=== PATIENT | male | born 1940 | race Caucasian/White ===

== ENCOUNTER 2018-07-19 11:41 | Emergency (ER) | payer MEDICARE, OTHER ==
--- NOTE | 2018-07-19 12:45 | EDM.PDOC ---
ED HPI GENERAL MEDICAL PROBLEM - General Chief Complaint: Lower Extremity Injury/Pain Stated Complaint: [facility] Time Seen by Provider: 07/19/18 11:48 Source of Information: Reports: Patient, Family, RN Notes Reviewed History Limitations: Reports: No Limitations - History of Present Illness INITIAL COMMENTS - FREE TEXT/NARRATIVE: Patient is a 77 year old male who is brought into the ED via [facility] for the evaluation of weakness and not being able to get out of his recliner this AM. The patient recently had a Right total knee replacement by Dr. Hernandez in [facility] in [place] roughly 2 weeks ago. The patient states that his knee buckled last night around 9pm and fell into the couch and then on to the floor. Emergency services were called to help him up and they put him into recliner and he stayed there all night. When he tried to get out of recliner, he was unable to get up and call the ambulance again for help. The states that she cannot help him up because he is like " weight" and it is difficult to do by herself. The patient is on oxycodone and tramadol Q6 PRN, and tizanidine q4 PRN for muscle spasms. He last got a dose of oxycodone last night around 6pm and the states that she started giving him his muscle relaxer last night starting around 5pm as scheduled. The states that PT/OT and home health nurse come to the house twice a week for therapy and they have also noticed a decline in his progression. The patient notes that this last sunday he thought he heard a popping sound and had a follow up appointment with his surgeon and had a knee x-ray and everything was fine, but states that he feels the weakness has increased since then. He also notes that he feels scared that he does not want to hurt his knee. There is mild swelling noted, but no obvious deformity. He denies any recent illness, or feelings of being unwell at all. Right Knee Pain Score (Numeric/FACES): 5 - Related Data Allergies Allergy/AdvReac Type Severity Reaction Status Date / Time No Known Allergies Allergy Verified 07/19/18 11:47 Home Meds: Home Meds Acetaminophen [Tylenol] 1,000 mg PO Q6H PRN 07/19/18 [History] Aspirin 81 mg PO BID 07/19/18 [History] Famotidine 10 mg PO BID 07/19/18 [History] Fish Oil/[place]-3 Fatty Acids [Fish Oil 1,000 MG] 1 tab PO DAILY 07/19/18 [ History] Lisinopril/Hydrochlorothiazide [Lisinopril-Hctz 20-25 mg Tab] 1 tab PO DAILY [History] Meloxicam 15 mg PO DAILY 07/19/18 [History] Multivitamin [Multivitamins] 1 tab PO DAILY 07/19/18 [History] Polyethylene Glycol 3350 [MiraLAX] 17 gm PO DAILY 07/19/18 [History] Sennosides/Docusate Sodium [Senna-S] 1 tab PO BID 07/19/18 [History] amLODIPine [Norvasc] 5 mg PO DAILY 07/19/18 [History] oxyCODONE 5 mg PO Q6HR PRN 07/19/18 [History] tiZANidine [Zanaflex] 4 mg PO Q6H PRN 07/19/18 [History] traMADol [Ultram] 50 mg PO Q6H PRN 07/19/18 [History] Past Medical History Cardiovascular History: Reports: Hypertension Musculoskeletal History: Reports: Other (See Below) Other Musculoskeletal History: 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 Neurological History: Reports: Other (See Below) Other Neuro History: dementia Psychiatric History: Reports: Depression - Past Surgical History GI Surgical History: Reports: Appendectomy Musculoskeletal Surgical History: Reports: Knee Replacement Social & Family History - Family History Family Medical History: Noncontributory - Tobacco Use Smoking Status *Q: Never Smoker Second Hand Smoke Exposure: No - Caffeine Use Caffeine Use: Reports: None - Recreational Drug Use Recreational Drug Use: No Review of Systems - Review of Systems Review Of Systems: See Below Constitutional: Denies: Chills, Fever Eyes: Reports: No Symptoms Ears: Denies: Dizziness Nose: Reports: No Symptoms Mouth/Throat: Reports: No Symptoms Respiratory: Denies: Shortness of Breath, Wheezing Cardiovascular: Denies: Chest Pain, Edema GI/Abdominal: Denies: Constipation, Diarrhea, Nausea, Vomiting Genitourinary: Reports: No Symptoms Musculoskeletal: Reports: Joint Swelling (mild localized swelling to right knee) , Other (muscle spasms bilateral legs) Skin: Reports: Wound (surgical wound, well healing to right knee). Denies: Pallor Neurological: Denies: Numbness, Tingling Psychiatric: Reports: No Symptoms ED EXAM, GENERAL - Physical Exam Exam: See Below Exam Limited By: No Limitations General Appearance: Alert, WD/WN, No Apparent Distress Eye Exam: Bilateral Eye: Normal Inspection Ears: Normal External Exam Nose: Normal Inspection Throat/Mouth: Normal Inspection Head: Atraumatic, Normocephalic Neck: Normal Inspection Respiratory/Chest: No Respiratory Distress, Lungs Clear, Normal Breath Sounds, No Accessory Muscle Use, Chest Non-Tender Cardiovascular: Normal Peripheral Pulses, Regular Rate, Rhythm, No Edema, No JVD , No Murmur GI/Abdominal: Normal Bowel Sounds, Soft, Non-Tender, No Distention, No Mass Extremities: Normal Inspection, Non-Tender, No Pedal Edema, Normal Capillary Refill, Joint Swelling (right knee), Limited Range of Motion (to right knee, d/ t replacement). No: Leg Pain, Increased Warmth, Pallor, Redness Neurological: Alert, Oriented, Normal Cognition, Normal Reflexes, No Motor/ Sensory Deficits Psychiatric: Normal Affect, Normal Mood Skin Exam: Warm, Dry, Intact, Normal Color, No Rash, Wound/Incision (surgical incision to right knee, well healing) ED TRAUMA EXTREMITY PROCEDURES - Splinting Right Lower Extremity Splint Site: right lower leg Pre-Procedure NV Status: Normal Post-Procedure NV Status: Normal Splint Material: Fiberglass Splint Design: Posterior (long leg) Applied & Form Fitted By: Provider Provider Post-Splint Application NV Check: NV Status Normal, Good Position Complications: No Course - Vital Signs Last Recorded V/S: Last Vital Signs Temp 99.1 F 07/19/18 17:30 Pulse 94 07/19/18 17:30 Resp 16 07/19/18 17:30 BP 118/79 07/19/18 17:30 Pulse Ox 96 07/19/18 17:30 Orthostatic Blood Pressure [] 157/87 Orthostatic Blood Pressure [] 128/79 - Orders/Labs/Meds Orders: Active Orders 24 hr Category Date Time Status Orthostatic Vital Signs [RC] ASDIRECTED Care 07/19/18 14:06 Ordered Peripheral IV Care [RC] . DIRECTED Care 07/19/18 17:24 Ordered Knee 3V Rt [CR] Stat Exams 07/19/18 17:19 Ordered Knee wo Cont Rt [CT] Stat Exams 07/19/18 15:58 Ordered Sodium Chloride 0.9% [Saline Flush] Med 07/19/18 17:24 Ordered 10 ml FLUSH ASDIRECTED PRN Peripheral IV Insertion Adult [OM.PC] Routine Oth 07/19/18 17:24 Ordered Medication Orders Sodium Chloride (Saline Flush) 10 ml FLUSH ASDIRECTED PRN PRN Reason: Keep Vein Open Last Admin: 07/19/18 17:51 Dose: 10 ml Labs: Laboratory Tests 07/19/18 07/19/18 Range/Units 12:45 12:45 WBC 5.00 (4.23-9.07) K/mm3 RBC 3.54 L (4.63-6.08) M/mm3 Hgb 9.3 L (13.7-17.5) gm/L Hct 30.2 L (40.1-51.0) % MCV 85.3 (79.0-92.2) fl MCH 26.3 (25.7-32.2) pg MCHC 30.8 L (32.2-35.5) g/dl RDW Std Deviation 52.2 H (35.1-43.9) fL Plt Count 459 H (163-337) K/mm3 MPV 7.6 L (9.4-12.3) fl Neutrophils % (Manual) 77 H (40-60) % Band Neutrophils % 0 (0-10) % Lymphocytes % (Manual) 15 L (20-40) % Atypical Lymphs % 0 % Monocytes % (Manual) 7 (2-10) % Eosinophils % (Manual) 0 L (0.8-7.0) % Basophils % (Manual) 1 (0.2-1.2) Platelet Estimate Adequate Plt Morphology Comment Normal Hypochromasia 1+ slight Anisocytosis 2+ moderate Microcytosis 1+ slight RBC Morph Comment Not Reportable Sodium 136 (136-145) mEq/L Potassium 3.5 (3.5-5.1) mEq/L Chloride 100 (98-107) mEq/L Carbon Dioxide 26 (21-32) mEq/L Anion Gap 13.5 (5-15) BUN 21 H (7-18) mg/dL Creatinine 0.8 (0.7-1.3) mg/dL Est Cr Clr Drug Dosing 82.92 mL/min Estimated GFR (MDRD) > 60 (>60) mL/min BUN/Creatinine Ratio 26.3 H (14-18) Glucose 144 H (83-115) mg/dL Calcium 9.0 (8.5-10.1) mg/dL Total Bilirubin 0.6 (0.2-1.0) mg/dL AST 28 (15-37) U/L ALT 24 (16-63) U/L Alkaline Phosphatase 76 (46-116) U/L Total Protein 6.9 (6.4-8.2) g/dl Albumin 2.9 L (3.4-5.0) g/dl Globulin 4.0 gm/dL Albumin/Globulin Ratio 0.7 L (1-2) Meds: Medications Generic Name Dose Route Start Last Admin Trade Name Freq PRN Reason Stop Dose Admin Sodium Chloride 10 ml 07/19/18 17:24 07/19/18 17:51 Saline Flush FLUSH 10 ml ASDIRECTED PRN Administration Keep Vein Open Discontinued Medications Generic Name Dose Route Start Last Admin Trade Name Freq PRN Reason Stop Dose Admin Hydromorphone HCl 1 mg 07/19/18 17:24 07/19/18 17:49 Dilaudid IVPUSH 07/19/18 17:25 1 mg ONETIME ONE Administration Orphenadrine Citrate 100 mg 07/19/18 14:30 07/19/18 14:40 Norflex PO 07/19/18 14:31 100 mg ONETIME ONE Administration Oxycodone HCl 5 mg 07/19/18 16:58 07/19/18 17:54 Oxycodone PO 07/19/18 16:59 Not Given ONETIME ONE - Radiology Interpretation Free Text/Narrative:: CT right knee Technique: Multiple axial sections through the right knee were obtained. Reconstructed coronal and sagittal images were obtained. Findings: Distal diaphyseal fracture is seen near the junction the mid and distal one third diaphysis. There is overlapping of the fracture fragments with displacement by over a shaft width. Proximal fragment is displaced posteriorly. Right knee prosthesis is seen. Fracture does not involve the prosthesis. No additional fracture is identified. Soft tissue swelling is seen. Impression: 1. Distal diaphyseal fracture at the junction of the mid and distal one third diaphysis. Overlapping of the fracture fragments are noted with displacement. 2. Prosthesis is noted within the right knee. Fracture does not involve the prosthesis. - Re-Assessments/Exams Free Text/Narrative Re-Assessment/Exam: 07/19/18 12:51 Pt presents to the ED for the evaluation of increased weakness with fall last noc s/p R knee replacement 2 weeks ago. There are no obvious deformities to R knee joint, just some mild swelling. I will try to get a hold of his surgical team to see if they have any further recommendations, but in the mean time I have ordered a CBC and CMP for evaluation of weakness to see if there may be an electrolyte abnormality or anemia possibility. It is my belief that he may need more frequent, smaller amounts of therapy to help with his recovery from knee replacement. 07/19/18 14:06 Pt labs are back and they are quite unremarkable, I was able to get a hold of Dr. Hernandez around 13:15 and he seems to think that he may need some extra therapy as well, inpatient vs outpatient is yet to be determined. Have ordered ortho vital signs and will try to walk him to see if he is able to get out of bed. 07/19/18 14:58 Pt was unable to get out of bed to walk for us. He will need hospital admission for rehab. The patient did request to be admitted to [facility] in [place] if possible. Will try to arrange transfer of this. He will likely need group home admission after his hospitalization. [facility] is consulted on the case and is trying to coordinate admission, under care of Dr. Bernstein (hospitalist ) with consult for Dr. Hernandez. 07/19/18 15:43 [facility] was consulted and Dr. Bernstein feels this may be a lateral transfer, since this is a rehab sort of situation. Dr. Titus our hospitalist was consulted and she declined admission because we do not have ortho coverage this weekend, in the off chance that something may happen the the joint that was repaired. I agree with Dr. Titus. The patient was made aware of this. [facility] (Dr. Bernstein) would accept but only for observation at this point. I strongly feel that the patient needs to be admitted to [facility], where his surgeon is so that they can more closely follow, as we cannot provide him proper ortho services if something should happen. 07/19/18 15:55 Dr. Bernstein would like a Right knee CT done prior to transfer. 07/19/18 17:10 CT is done and shows that he did in fact fracture his right femur. 5mg oxycodone has been ordered and splint will be placed before transfer to [facility] , [facility] will be called back and will be informed of the fracture, this will likely change him to inpatient status. Will consult them for what splint they feel is appropriate. 07/19/18 18:35 [facility] requested that the patient have a posterior long leg splint and patient be NPO after midnight. He will be inpatient status. Departure - Departure Time of Disposition: 18:30 Disposition: DC/Tfer to Acute Hospital 02 Condition: Fair Clinical Impression: Closed fracture of femur - Discharge Information *PRESCRIPTION DRUG MONITORING PROGRAM REVIEWED*: No *COPY OF PRESCRIPTION DRUG MONITORING REPORT IN PATIENT KADY: No Forms: ED Department Discharge - My Orders Last 24 Hours: My Active Orders 07/19/18 14:06 Orthostatic Vital Signs [RC] ASDIRECTED 07/19/18 15:58 Knee wo Cont Rt [CT] Stat 07/19/18 17:19 Knee 3V Rt [CR] Stat 07/19/18 17:24 Peripheral IV Care [RC] . DIRECTED Sodium Chloride 0.9% [Saline Flush] 10 ml FLUSH ASDIRECTED PRN Peripheral IV Insertion Adult [OM.PC] Routine - Assessment/Plan Last 24 Hours: My Active Orders 07/19/18 14:06 Orthostatic Vital Signs [RC] ASDIRECTED 07/19/18 15:58 Knee wo Cont Rt [CT] Stat 07/19/18 17:19 Knee 3V Rt [CR] Stat 07/19/18 17:24 Peripheral IV Care [RC] . DIRECTED Sodium Chloride 0.9% [Saline Flush] 10 ml FLUSH ASDIRECTED PRN Peripheral IV Insertion Adult [OM.PC] Routine
[2018-07-19] MEDS ORDERED: Orphenadrine 100 MG Tab.ER PO ONE (14:30)
[2018-07-19] MEDS ORDERED: oxyCODONE 5 MG Tab PO ONE (16:58)
[2018-07-19] MEDS ORDERED: HYDROmorphone 1 MG/ML Syringe IVPUSH ONE (17:24)
[2018-07-19] MEDS ORDERED: Sodium Chloride 0.9% 10 ML Syringe FLUSH PRN (17:24)
--- NOTE | 2018-07-20 15:30 | CR ---
Right knee: AP and lateral views of the right knee were obtained. Comparison: No previous study. Distal femur fracture is noted. Fracture shows foreshortening and displacement. Knee prosthesis is seen. Osteopenia is noted. Soft tissue swelling is seen. Impression: 1. Distal femur fracture as noted above. 2. Knee prosthesis. Diagnostic code #3
--- NOTE | 2018-07-22 06:35 | CT ---
CT right knee Technique: Multiple axial sections through the right knee were obtained. Reconstructed coronal and sagittal images were obtained. Findings: Distal diaphyseal fracture is seen near the junction of the mid and distal one third diaphysis. There is overlapping of the fracture fragments with displacement by over a shaft width. Proximal fragment is displaced posteriorly. Right knee prosthesis is seen. Fracture does not involve the prosthesis. No additional fracture is identified. Soft tissue swelling is seen. Impression: 1. Distal diaphyseal fracture at the junction of the mid and distal one third diaphysis. Overlapping of the fracture fragments is noted with displacement. 2. Prosthesis is noted within the right knee. Fracture does not involve the prosthesis. Diagnostic code #3 MTDD
== END 2018-07-19 19:25 ==
LOC: JD.ED 11:41
DX: S72.401A Unspecified fracture of lower end of right femur, initial encounter for closed fracture (principal); I10 Essential (primary) hypertension; Z79.82 Long term (current) use of aspirin; Z79.899 Other long term (current) drug therapy; W17.89XA Other fall from one level to another, initial encounter
CPT/HCPCS: 29505; 36415; 73562; 73700; 80053; 85007; 85027; 96374; 99285; A9270; J1170

== ENCOUNTER 2018-11-17 16:50 | Emergency (ER) | payer MEDICARE, OTHER ==
--- NOTE | 2018-11-17 17:47 | EDM.PDOC ---
ED HPI GENERAL MEDICAL PROBLEM - General Chief Complaint: Lower Extremity Injury/Pain Stated Complaint: R LEG PAIN Time Seen by Provider: 11/17/18 17:29 Source of Information: Reports: Patient, Family ( + daughter), RN Notes Reviewed History Limitations: Reports: No Limitations - History of Present Illness INITIAL COMMENTS - FREE TEXT/NARRATIVE: The patient underwent right total knee arthroplasty on 07/03/2018 at [facility]. His knee buckled and he fell at home on 07/18/2018. He was seen in this ED on 07/19/2018, after being unable to get out of his recliner that he spent the night in. He was found to have a distal right femur fracture. He was transferred to [facility], were he received a right femur toño on 2018. He was then sent to rehabilitation on 07/23/2018, where he stayed until about one week ago. The patient now presents to the ED stating that he twisted his right lower extremity yesterday, causing distal right thigh pain. He is unable to ambulate, because he feels like his lower extremity is weak and unable to support his weight. The patient's PCP is Dr. Ced Jimenez. His Orthopedic Surgeon is Dr. Wilber Hernandez. Right Upper Leg Pain Score (Numeric/FACES): 8 - Related Data Allergies Allergy/AdvReac Type Severity Reaction Status Date / Time No Known Allergies Allergy Verified 11/17/18 16:57 Home Meds: Home Meds Aspirin 81 mg PO BID 07/19/18 [History] Famotidine 20 mg PO BID 07/19/18 [History] Fish Oil/[place]-3 Fatty Acids [Fish Oil 1,000 MG] 1 tab PO DAILY 07/19/18 [ History] Lisinopril/Hydrochlorothiazide [Lisinopril-Hctz 20-25 mg Tab] 1 tab PO DAILY [History] Meloxicam 15 mg PO DAILY 07/19/18 [History] Multivitamin [Multivitamins] 1 tab PO DAILY 07/19/18 [History] amLODIPine [Norvasc] 5 mg PO DAILY 07/19/18 [History] tiZANidine [Zanaflex] 4 mg PO Q6H PRN 07/19/18 [History] Acetaminophen 650 mg PO Q6H PRN 11/17/18 [History] Melatonin 5 mg PO BEDTIME 11/17/18 [History] Sertraline [Zoloft] 50 mg PO DAILY 11/17/18 [History] Past Medical History Cardiovascular History: Reports: High Cholesterol, Hypertension Musculoskeletal History: Reports: Arthritis (knees), Fracture (right distal femur 07/18/2018) Neurological History: Reports: Other (See Below) (Dementia) Psychiatric History: Reports: Depression - Past Surgical History HEENT Surgical History: Reports: Cataract Surgery GI Surgical History: Reports: Appendectomy Musculoskeletal Surgical History: Reports: Knee Replacement (right, 07/03/2018), Other (See Below) (Right femur rodding 07/20/2018. Left bunionectomy. Left hammertoes.) Social & Family History - Family History Family Medical History: Noncontributory - Tobacco Use Smoking Status *Q: Never Smoker - Caffeine Use Caffeine Use: Reports: None - Alcohol Use Alcohol Use History: Yes Alcohol Use Frequency: Rarely - Recreational Drug Use Recreational Drug Use: No - Living Situation & Occupation Living situation: Reports: , with Spouse Occupation: Retired Review of Systems - Review of Systems Review Of Systems: ROS reveals no pertinent complaints other than HPI. ED EXAM, GENERAL - Physical Exam Exam: See Below Exam Limited By: No Limitations General Appearance: Alert, WD/WN, No Apparent Distress Extremities: Other (There appears to be foreshortening and thickening of the right thigh, when compared to the left, although I'm aware that the patient's left side may ordinarily be diminutive compared to the right. There may be some subtle ecchymosis to the distal lateral thigh, and there is tenderness in this area. Well-healed scars to the lateral distal thigh and over the anterior knee. Neurovascular status of the right lower extremity is intact.) Course - Vital Signs Last Recorded V/S: Last Vital Signs Temp 36.8 C 11/17/18 16:57 Pulse 95 11/17/18 16:57 Resp 18 11/17/18 16:57 BP 149/83 H 11/17/18 16:57 Pulse Ox 97 11/17/18 16:57 - Orders/Labs/Meds Orders: Active Orders 24 hr Category Date Time Status Femur Min 2V Rt [CR] Stat Exams 11/17/18 17:45 Ordered - Re-Assessments/Exams Free Text/Narrative Re-Assessment/Exam: 11/17/18 17:46 The patient fractured his distal right femur in late June with minimal trauma. I'm concerned that he may have done the same thing again. I ordered x- rays of his right femur. 11/17/18 18:31 5-view radiographs of the right femur appear to demonstrate a minimally displaced, medially angulated fracture of not only the distal femur, but of the intramedullary toño, as well. 3 surgical wires at the fracture site appear to be intact, however, the proximal screw appears to be fractured. 2 distal screws appear to be intact. Knee arthroplasty hardware appears to be intact. Formal read per the Radiologist pending. I will push the images to [facility]. 11/17/18 20:15 Case discussed with Katrin at [facility] at 18:54. Case then discussed with Dr. Acosta, Orthopedic Surgeon substation electrician supervisor at [facility], at 20:01 (there was a significant delay is his being able to view the pushed images). He would like the patient to be admitted to the Hospitalist service. He mentioned that there will need to be some planning for the eventual procedure, therefore the patient will not likely go to the operating room for a couple of days. Case then discussed with Dr. Dobbs, Hospitalist at [facility], at 20: 07. He accepted the patient for transfer to their facility. The patient will go by ground ambulance. The above information was then discussed with the patient, his , and daughter. They are all in agreement. Departure - Departure Time of Disposition: 20:19 Disposition: DC/Tfer to Acute Hospital 02 Condition: Fair Clinical Impression: Fracture of femur, distal, right, closed - Discharge Information *PRESCRIPTION DRUG MONITORING PROGRAM REVIEWED*: Not Applicable *COPY OF PRESCRIPTION DRUG MONITORING REPORT IN PATIENT KADY: Not Applicable Referrals: Ced Lake MD [Primary Care Provider] - Wilber Hernandez MD [Ordering Only Provider] - Forms: ED Department Discharge - My Orders Last 24 Hours: My Active Orders 11/17/18 17:45 Femur Min 2V Rt [CR] Stat - Assessment/Plan Last 24 Hours: My Active Orders 11/17/18 17:45 Femur Min 2V Rt [CR] Stat
[2018-11-17] MEDS ORDERED: HYDROmorphone 1 MG/ML Syringe IVPUSH ONE (21:37)
--- NOTE | 2018-11-19 10:28 | CR ---
Right femur: AP and lateral views of the right femur were obtained. Comparison: Previous femur study of 07/19/18. Refracture is noted within the distal femur. Intramedullary toño is seen which was placed for previous fracture. This intramedullary toño shows fracturing with displacement. Displacement of the fracture is apex anterior and lateral. No proximal femur abnormality is seen. Impression: 1. Refracturing of distal right femur as well as fracturing of an intramedullary toño at the level of the distal femur fracture. Diagnostic code #5
== END 2018-11-17 21:50 ==
LOC: JD.ED 16:50
DX: T84.114A Breakdown (mechanical) of internal fixation device of right femur, initial encounter (principal); S72.401A Unspecified fracture of lower end of right femur, initial encounter for closed fracture; I10 Essential (primary) hypertension; E78.00 Pure hypercholesterolemia, unspecified; F32.9 Major depressive disorder, single episode, unspecified; Z79.82 Long term (current) use of aspirin; Z79.899 Other long term (current) drug therapy; X50.9XXA Other and unspecified overexertion or strenuous movements or postures, initial encounter
CPT/HCPCS: 73552; 96374; 99284; J1170; 99283

== ENCOUNTER 2021-03-02 11:59 | Emergency (ER) | payer MEDICARE, OTHER ==
[2021-03-02] MEDS ORDERED: Famotidine 20 MG/2 ML SDV IVPUSH PRN (14:09)
[2021-03-02] MEDS ORDERED: Sodium Chloride 0.9% 10 ML Syringe FLUSH PRN (14:09)
[2021-03-02] MEDS ORDERED: EPINEPHrine 1 MG/ML SDV IM PRN (14:09)
[2021-03-02] MEDS ORDERED: diphenhydrAMINE 50 MG/ML SDV IVPUSH PRN (14:09)
[2021-03-02] MEDS ORDERED: methylPREDNISolone Sodium Succinate 125 MG/2 ML SDV IVPUSH PRN (14:09)
[2021-03-02] MEDS ORDERED: Sodium Chloride 0.9% 10 ML Syringe FLUSH SCH (14:15)
--- NOTE | 2021-03-02 14:50 | EDM.PDOC ---
ED HPI GENERAL MEDICAL PROBLEM - General Chief Complaint: General Stated Complaint: COVID+ Time Seen by Provider: 03/02/21 12:41 Source of Information: Reports: Patient, Provider History Limitations: Reports: No Limitations - History of Present Illness INITIAL COMMENTS - FREE TEXT/NARRATIVE: 80-year-old male presents the emergency department after being seen by his primary care provider at [facility]. Primary care provider called to give report on the patient. Apparently, the patient was seen at the clinic by his provider today for left knee pain. Apparently, the patient had fallen and injured his left knee. Patient also complained of a new onset cough, shortness of breath and fatigue. Respiratory symptoms started about 4 days ago. He denies any fever, chills, nausea, vomiting or diarrhea. The patient did receive his [employer] Covid vaccine with the second dose being on August 11, 2020. The patient was evaluated at the clinic for his knee pain and x-rays were completed. Radiologist impression reports no fracture or traumatic malalignment of the left knee. Trace of joint effusion. Chest x-ray was also completed at the clinic and the radiologist impression: Consolidated opacities scattered throughout the right lung are new since 08/27/2019 and are compatible with an infectious or inflammatory process. Low lung volumes. No pleural effusion or pneumothorax. Hea rt size at the upper limits of normal. The patient was found to be hypoxic at the clinic with O2 saturations of 88% and his primary care provider believed it was in his best interest to be evaluated and treated in the emergency department. Bilateral Knee Pain Score (Numeric/FACES): 5 - Related Data Allergies Allergy/AdvReac Type Severity Reaction Status Date / Time No Known Allergies Allergy Verified 03/02/21 12:44 Home Meds: Home Meds Aspirin 81 mg PO BID 07/19/18 [History] Famotidine 20 mg PO BID 07/19/18 [History] Fish Oil/[place]-3 Fatty Acids [Fish Oil 1,000 MG] 1 tab PO DAILY 07/19/18 [History] Lisinopril/Hydrochlorothiazide [Lisinopril-Hctz 20-25 mg Tab] 1 tab PO DAILY 07/19/18 [History] Meloxicam 15 mg PO DAILY 07/19/18 [History] Multivitamin [Multivitamins] 1 tab PO DAILY 07/19/18 [History] amLODIPine [Norvasc] 5 mg PO DAILY 07/19/18 [History] tiZANidine [Zanaflex] 4 mg PO Q6H PRN 07/19/18 [History] Acetaminophen 650 mg PO Q6H PRN 11/17/18 [History] Melatonin 5 mg PO BEDTIME 11/17/18 [History] Sertraline [Zoloft] 50 mg PO DAILY 11/17/18 [History] Past Medical History HEENT History: Reports: Cataract Cardiovascular History: Reports: High Cholesterol, Hypertension Musculoskeletal History: Reports: Arthritis, Fracture Other Musculoskeletal History: 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 Neurological History: Reports: Other (See Below) Other Neuro History: dementia Psychiatric History: Reports: Depression - Past Surgical History HEENT Surgical History: Reports: Cataract Surgery GI Surgical History: Reports: Appendectomy Musculoskeletal Surgical History: Reports: Knee Replacement, Other (See Below) Social & Family History - Family History Family Medical History: No Pertinent Family History - Tobacco Use Tobacco Use Status *Q: Never Tobacco User Second Hand Smoke Exposure: No - Caffeine Use Caffeine Use: Reports: None - Recreational Drug Use Recreational Drug Use: No - Living Situation & Occupation Living situation: Reports: , with Spouse Occupation: Retired ED ROS GENERAL - Review of Systems Review Of Systems: Comprehensive ROS is negative, except as noted in HPI. ED EXAM, GENERAL - Physical Exam Exam: See Below Exam Limited By: No Limitations General Appearance: Alert, WD/WN, No Apparent Distress Ears: Normal External Exam, Hearing Grossly Normal Nose: Normal Inspection Throat/Mouth: Normal Inspection, Normal Lips, Normal Voice, No Airway Compromise Head: Atraumatic Neck: Normal Inspection, Supple Respiratory/Chest: No Respiratory Distress, Lungs Clear, Normal Breath Sounds, No Accessory Muscle Use, Chest Non-Tender Cardiovascular: Normal Peripheral Pulses, Regular Rate, Rhythm, No Edema, No Murmur Peripheral Pulses: 2+: Radial (L), Radial (R) GI/Abdominal: Normal Bowel Sounds, Soft, Non-Tender, No Distention (Male) Exam: Deferred Rectal (Males) Exam: Deferred Back Exam: Normal Inspection Extremities: Normal Range of Motion, No Pedal Edema, Normal Capillary Refill. No: Normal Inspection (Erythema noted to bilateral knees with a very superficial abrasion noted to the right knee), Non-Tender (Tenderness noted to the right knee) Neurological: Alert, Oriented, Normal Cognition Psychiatric: Normal Affect, Normal Mood Skin Exam: Warm, Dry, Intact, Normal Color, No Rash Lymphatic: No Adenopathy Course - Vital Signs Text/Narrative:: As stated above, patient presents positive for Covid and was hypoxic at the clinic however at triage, the patient's O2 saturations were 95%. At the time of my exam his O2 saturations were 98 to 100%. I believe this patient would be a good candidate for monoclonal antibodies. I discussed with the pharmacy whether or not this is indicated as the patient did have his Covid vaccinations and they affirm that it is appropriate treatment. Exam is essentially unremarkable. Patient does have redness noted to his bilateral knees with an abrasion on the right knee. We will obtain baseline lab studies I spoke with the patient to provide information about Regeneron treatment for himself. I offered her the patient and caregiver Regeneron fax sheet to read and review. I stated the drug has been approved by an emergency use authorization process and has not been fully FDA approved or reviewed. The patient meets the EUA requirements. I discussed there are other potential treatment options that are currently not FDA approved to treat COVID-19. Offered opportunity to ask questions and all questions were answered. The patient voiced understanding and agreed to proceed with the treatment for himself. Last Recorded V/S: Last Vital Signs Temp 97.1 F 03/02/21 12:38 Pulse 80 03/02/21 12:38 Resp 14 03/02/21 12:38 BP 137/84 03/02/21 12:38 Pulse Ox 95 03/02/21 12:38 - Orders/Labs/Meds Orders: Active Orders 24 hr Category Date Time Status Saline Lock Insert [OM.PC] Stat Oth 03/02/21 14:09 Ordered Labs: Laboratory Tests 03/02/21 03/02/21 Range/Units 14:09 14:30 WBC 3.38 L (4.23-9.07) K/mm3 RBC 4.77 (4.63-6.08) M/mm3 Hgb 13.5 L D (13.7-17.5) gm/dl Hct 41.4 (40.1-51.0) % MCV 86.8 (79.0-92.2) fl MCH 28.3 (25.7-32.2) pg MCHC 32.6 (32.2-35.5) g/dl RDW Std Deviation 51.6 H (35.1-43.9) fL Plt Count 176 D (163-337) K/mm3 MPV 8.4 L (9.4-12.3) fl Neut % (Auto) 79.3 H (34.0-67.9) % Lymph % (Auto) 13.0 L (21.8-53.1) % [place] % (Auto) 7.4 (5.3-12.2) % Eos % (Auto) 0 L (0.8-7.0) Baso % (Auto) 0.0 L (0.1-1.2) % Neut # (Auto) 2.68 (1.78-5.38) K/mm3 Lymph # (Auto) 0.44 L (1.32-3.57) K/mm3 [place] # (Auto) 0.25 L (0.30-0.82) K/mm3 Eos # (Auto) 0.00 L (0.04-0.54) K/mm3 Baso # (Auto) 0.00 L (0.01-0.08) K/mm3 Sodium 140 (136-145) mEq/L Potassium 3.7 (3.5-5.1) mEq/L Chloride 102 (98-107) mEq/L Carbon Dioxide 28 (21-32) mEq/L Anion Gap 13.7 (5-15) BUN 22 H (7-18) mg/dL Creatinine 0.7 (0.7-1.3) mg/dL Est Cr Clr Drug Dosing TNP Estimated GFR (MDRD) > 60 (>60) mL/min BUN/Creatinine Ratio 31.4 H (14-18) Glucose 107 H (70-99) mg/dL Calcium 8.6 (8.5-10.1) mg/dL Magnesium 2.1 (1.8-2.4) mg/dL Total Bilirubin 0.8 (0.2-1.0) mg/dL AST 52 H (15-37) U/L ALT 36 (16-63) U/L Alkaline Phosphatase 60 (46-116) U/L Total Protein 7.4 (6.4-8.2) g/dl Albumin 3.4 (3.4-5.0) g/dl Globulin 4.0 gm/dL Albumin/Globulin Ratio 0.9 L (1-2) Meds: Medications Discontinued Medications Generic Name Dose Route Start Last Admin Trade Name Freq PRN Reason Stop Dose Admin Diphenhydramine HCl 50 mg 03/02/21 14:09 Diphenhydramine 50 Mg/Ml Sdv IVPUSH ONETIME PRN hypersensitivity reaction Epinephrine HCl 0.3 mg 03/02/21 14:09 Epinephrine 1 Mg/Ml Sdv IM ONETIME PRN hypersensitivity reaction Famotidine 20 mg 03/02/21 14:09 Famotidine 20 Mg/2 Ml Sdv IVPUSH ONETIME PRN hypersensitivity reaction CASIRIVIMAB/IMDEVIMAB 10 ml/ 110 mls @ 220 mls/hr 03/02/21 14:09 03/02/21 15:07 Sodium Chloride IV 03/02/21 14:38 Not Given ONETIME ONE CASIRIVIMAB/IMDEVIMAB 10 ml/ 110 mls @ 220 mls/hr 03/02/21 15:00 03/02/21 15:07 Sodium Chloride IV 03/02/21 15:29 220 mls/hr ONETIME ONE Administration Methylprednisolone Sodium Succinate 125 mg 03/02/21 14:09 Methylprednisolone Sodium Succinate 125 Mg/2 Ml Sdv IVPUSH ONETIME PRN hypersensitivity reaction Sodium Chloride 30 ml 03/02/21 14:15 Sodium Chloride 0.9% 10 Ml Syringe FLUSH ASDIRECTED JESUS Sodium Chloride 10 ml 03/02/21 14:09 Sodium Chloride 0.9% 10 Ml Syringe FLUSH ASDIRECTED PRN Keep Vein Open Departure - Departure Time of Disposition: 16:49 Disposition: Home, Self-Care 01 Condition: Good Clinical Impression: COVID-19 - Discharge Information Instructions: 10 Things You Can Do to Manage Your COVID-19 Symptoms at Home - C DC (12/24/2019) Referrals: Adam Gillespie MD [Primary Care Provider] - Forms: ED Department Discharge Additional Instructions: You were seen in the emergency department for evaluation of your shortness of breath and cough. At the time of exam your oxygen levels were 95 to 100% which does not require you to be hospitalized. However you were a candidate for monoclonal antibody treatment, or Regeneron. You did elect to receive this. As discussed it has been shown to decrease the severity and length of time of Covid symptoms. You will still need to quarantine for 10 days once you have been discharged from the emergency department. Continue to use your incentive spirometer as directed. Recommend follow-up care with your primary care provider once your 10 days of quarantine has been completed. Should your condition worsen or change, do not hesitate returning to the emergency department. - My Orders Last 24 Hours: My Active Orders 03/02/21 14:09 Saline Lock Insert [OM.PC] Stat - Assessment/Plan Last 24 Hours: My Active Orders 03/02/21 14:09 Saline Lock Insert [OM.PC] Stat
== END 2021-03-02 16:49 | disposition home or self-care (01) ==
LOC: JD.ED 11:59
DX: S80.211A Abrasion, right knee, initial encounter (principal); U07.1 COVID-19; I10 Essential (primary) hypertension; M19.90 Unspecified osteoarthritis, unspecified site; Z79.82 Long term (current) use of aspirin; Z79.899 Other long term (current) drug therapy; W18.30XA Fall on same level, unspecified, initial encounter; Y92.096 Garden or yard of other non-institutional residence as the place of occurrence of the external cause
CPT/HCPCS: 36415; 80053; 83735; 85025; 99284; M0243; Q0243

== ENCOUNTER 2022-10-07 13:40 | Observation (INO) | payer MEDICARE, OTHER ==
[2022-10-07 15:25] LABS: ESTIMATED GFR 89 mL/min (>60)
[2022-10-07] MEDS: Nystatin Topical Powder 15 GM Bottle TOP PRN (17:02)
[2022-10-07] MEDS ORDERED: Ondansetron 4 MG Tab.DIS PO PRN (17:09)
[2022-10-07] MEDS ORDERED: Polyethylene Glycol 3350 Powder 17 GM Packet PO PRN (18:45)
[2022-10-08] MEDS: Acetaminophen 325 MG Tab PO PRN ×3 (02:50→20:01)
[2022-10-08] MEDS ORDERED: Melatonin 3 MG Tab PO PRN (07:16)
[2022-10-08] MEDS: Enoxaparin 40 MG/0.4 ML Syringe SUBCUT SCH (09:56)
[2022-10-08] MEDS: Aspirin 81 MG Tab.Chew PO SCH (09:56)
[2022-10-08] MEDS ORDERED: Meloxicam 7.5 MG Tab PO SCH ×2 (13:00→21:00)
[2022-10-08] MEDS ORDERED: amLODIPine 5 MG Tab PO SCH (13:00)
[2022-10-08] MEDS: Famotidine 20 MG Tab PO SCH (13:42)
[2022-10-08] MEDS: Lisinopril 20 MG Tab PO SCH (13:42)
[2022-10-08] MEDS: Sertraline 25 MG Tab PO SCH (13:43)
[2022-10-08] MEDS: Hydrochlorothiazide 25 MG Tab PO SCH (13:43)
[2022-10-09] MEDS: Acetaminophen 325 MG Tab PO PRN (00:18)
[2022-10-09] MEDS: Nystatin Topical Powder 15 GM Bottle TOP PRN (00:19)
[2022-10-09] MEDS: Sertraline 25 MG Tab PO SCH (08:17)
[2022-10-09] MEDS: Aspirin 81 MG Tab.Chew PO SCH (08:18)
[2022-10-09] MEDS: Lisinopril 20 MG Tab PO SCH (08:18)
[2022-10-09] MEDS: Famotidine 20 MG Tab PO SCH (08:19)
[2022-10-09] MEDS: Enoxaparin 40 MG/0.4 ML Syringe SUBCUT SCH (08:20)
[2022-10-09] MEDS: Hydrochlorothiazide 25 MG Tab PO SCH (08:20)
[2022-10-09] MEDS ORDERED: amLODIPine 5 MG Tab PO SCH (09:00)
[2022-10-10] MEDS ORDERED: amLODIPine 2.5 MG Tab PO SCH (09:00)
== END 2022-10-09 14:31 ==
LOC: JD.ED 13:40 → JD.MS 17:06
PROVIDERS: ADMIT Internal Medicine; ATTEND Internal Medicine
DX: R53.1 Weakness (principal); F03.94 Unspecified dementia, unspecified severity, with anxiety; B35.9 Dermatophytosis, unspecified; E78.00 Pure hypercholesterolemia, unspecified; I10 Essential (primary) hypertension; Z78.9 Other specified health status; R06.09 Other forms of dyspnea; Z90.49 Acquired absence of other specified parts of digestive tract; Z79.82 Long term (current) use of aspirin; Z79.899 Other long term (current) drug therapy; Z20.822 Contact with and (suspected) exposure to COVID-19
CPT/HCPCS: 36415; 51701; 71045; 73502; 80053; 81003; 83880; 84443; 85025; 93005; 96372; 97162; 97166; 99285; A9270; G0378; J1650; U0002; 93010

== ENCOUNTER 2025-01-22 20:22 | Emergency (ER) | payer MEDICARE, OTHER | END 2025-01-23 00:43 | disposition home or self-care (01) | LOC: JD.ED 20:22 | DX: S46.911A Strain of unspecified muscle, fascia and tendon at shoulder and upper arm level, right arm, initial encounter (principal); S70.01XA Contusion of right hip, initial encounter; S09.90XA Unspecified injury of head, initial encounter; I10 Essential (primary) hypertension; Z79.82 Long term (current) use of aspirin; Z79.899 Other long term (current) drug therapy; Z86.16 Personal history of COVID-19; W19.XXXA Unspecified fall, initial encounter | CPT/HCPCS: 70450; 71045; 73030; 73502; 73560; 99284; A9270; 99283 ==